=== PATIENT | female | born 1985 | race American Indian/Alaskan Native ===

== ENCOUNTER 2021-09-30 16:22 | Emergency (ER) | payer SELFPAY | END 2021-09-30 16:25 | disposition left against medical advice (07) | LOC: ED 16:22 | DX: J02.9 Acute pharyngitis, unspecified (principal); Z53.21 Procedure and treatment not carried out due to patient leaving prior to being seen by health care provider ==

== ENCOUNTER 2021-10-02 16:06 | Emergency (ER) | payer SELFPAY ==
[~2021-10-02 16:06] MED LIST: CALCIUM CHLORIDE 1,000 MG/10 ML SYRINGE IV ONE; EPINEPHrine 1 MG/10 ML SYRINGE ONE; SODIUM BICARB 8.4% 50 MEQ/50 ML SYRINGE IV ONE
[2021-10-02] MEDS ORDERED: SODIUM CHLORIDE 0.9% 1000 ML 1,000 ML ONE (16:18)
--- NOTE | 2021-10-02 17:09 | Emergency Department Report ---
ED CPR HPI - General Time Seen by Provider: 10/02/21 16:36 - History of Present Illness Initial Comments: Patient was brought in his cardiac arrest. History is obtained from EMS as the patient is unresponsive. She is intubated. Patient was at home. She apparently collapsed. EMS was called and the first strip that they got was asystole. They proceeded to start CPR. Epinephrine was administered multiple times. They continued CPR. She was intubated. She remained in asystole the whole time. Upon their arrival, her downtime was approximately 30 minutes. Family was present. Brother was brought into the room. He stated that the patient had been complaining of shortness of breath. That is when that she then collapsed. Apparently another family member attempted some bystander CPR. Patient did have coronavirus 2 to 3 weeks prior. According to the brother, this was a mild case. She had a little bit of a headache and some nasal congestion. She was otherwise healthy. ED Review of Systems ROS: Stated complaint: Other details as noted in HPI Comment: Unobtainable due to pts medical conditions ED Past Medical Hx - Past Medical History Previous Medical History?: No Additional medical history: Per the brother - Family History Family history: no significant (Per the brother) - Social History Substance Use Type: Other (Cannot be obtained for the patient secondary to CPR) ED Physical Exam - General Limitations: Physical Limitation (Intubation with CPR in progress) General appearance: obese, other (Unresponsive) - Head Head exam: Present: atraumatic, other (ET tube in place) - Eye Eye exam: Present: other (Pupils are fixed and dilated at 3 mm to 4 mm.) - ENT ENT exam: Present: other (Orotracheal tube in place with bloody secretions noted) - Neck Neck exam: Present: other (Trachea midline. No crepitus) - Respiratory Respiratory exam: Present: normal lung sounds bilaterally (With bag ventilation), other (No spontaneous respirations) - Cardiovascular Cardiovascular Exam: Present: other (Pulseless.) - GI/Abdominal GI/Abdominal exam: Present: soft, other (Obese) - Extremities Exam Extremities exam: Present: other (Capillary refill of 4 seconds) - Neurological Exam Neurological exam: Present: other (Unresponsive. GCS 3 T) - Psychiatric Psychiatric exam: Present: other (Unresponsive) - Skin Skin exam: Present: warm, dry ED Course - Reevaluation(s) Reevaluation #1: 10/02/21 17:08 CPR was continued. Multiple rounds of epinephrine were given. Bicarbonate was given. Calcium was given. We continued CPR intermittently with pulse checks. Ultimately, patient was not responsive. Bedside ultrasound failed to demonstrate cardiac activity. The brother was present. Patient was then pronounced. Time of was 1621. Total CPR time was 20 minutes. - Procedure Description Procedures done: Procedure note: Bedside cardiac ultrasound. Indication: Cardiac arrest. Evaluate for cardiac activity. Patient was supine. Consent was implied. Small curvilinear probe was used and a left parasternal view. Cardiac silhouette was noted. There was no cardiac activity. There was no movement. There was no pericardial effusion. There were no complications. ED Medical Decision Making - Lab Data Rhythm strip #1: Asystole. Monitor observed for 5 seconds. Rhythm strip #2: Asystole. Monitor observed 5 seconds. - Medical Decision Making Patient presents with cardiac arrest. She was asystolic the entire time. She had greater than 45 minutes of asystole without return of spontaneous circulation. She would not have any neurologic function or survivability based on her current presentation. She had no cardiac activity on ultrasound. Patient was pronounced at 1621. Critical Care Time: No (No critical care time. CPR time of 20 minutes in the emergency department.) Critical care attestation.: If time is entered above; I have spent that time in minutes in the direct care of this critically ill patient, excluding procedure time. ED Disposition Clinical Impression: Cardiac arrest Disposition: 20 Is pt being admited?: No Condition: Stable Referrals: PRIMARY CARE, [Primary Care Provider] - 3-5 Days
== END 2021-10-02 17:00 ==
LOC: ED 16:06
DX: I46.9 Cardiac arrest, cause unspecified (principal)
CPT/HCPCS: 92950; 99285; J0171; J3490; J7030; Q0162